=== PATIENT | female | born 1980 | race Caucasian/White ===

== ENCOUNTER 2023-02-25 15:58 | Emergency (ER) | payer OTHER ==
[2023-02-25 16:13] VITALS: BP 126/67; PULSE 90; RESP 18; TEMP 98; BMI 45.8
[2023-02-25 17:35] LABS: BASO % 0.7 % (0-2.0); EOS % 1.7 % (0-4.5); HEMATOCRIT 32.4 % (32.4-45.2); HEMOGLOBIN 10.2 GM/dL (10.7-15.3); LYMPH % 26.8 % (8-40); MCH 20.6 pg (25.7-33.7); MCHC 31.6 g/dl (32.0-36.0); MEAN CELL VOLUME 65.1 fl (80-96); MEAN PLT VOLUME 8.2 fl (7.5-11.1); MONO % 5.8 % (3.8-10.2); PLATELET COUNT 286 10^3/uL (134-434); RBC 4.98 M/mm3 (3.60-5.2); RDW 18.7 % (11.6-15.6); WHITE BLOOD COUNT 6.3 K/mm3 (4.0-10.0)
[2023-02-25 17:43] LABS: HCG,QUALITATIVE URINE Positive
[2023-02-25 17:45] LABS: PH,URINE 5.5 (5.0-8.0); URINE APPEARANCE CLEAR; URINE BILIRUBIN NEGATIVE (NEGATIVE); URINE COLOR YELLOW; URINE GLUCOSE (UA) NEGATIVE (NEGATIVE); URINE KETONE NEGATIVE (NEGATIVE); URINE LEUK ESTERASE NEGATIVE (NEGATIVE); URINE NITRITE NEGATIVE (NEGATIVE); URINE PROTEIN NEGATIVE (NEGATIVE); URINE UROBILINOGEN 0.2 mg/dL (0.2-1.0)
[2023-02-25 17:53] LABS: POTASSIUM 4.1 mmol/L (3.5-5.1)
[2023-02-25 17:55] LABS: CALCIUM 9.3 mg/dL (8.5-10.1)
[2023-02-25 17:56] LABS: ALBUMIN 3.7 g/dl (3.4-5.0); BLOOD UREA NITROGEN 7.7 mg/dL (7-18)
[2023-02-25 17:59] LABS: CREATININE 0.6 mg/dL (0.55-1.3)
[2023-02-25 18:01] LABS: BILIRUBIN,TOTAL 0.5 mg/dL (0.2-1); TOT PROT 7.7 g/dl (6.4-8.2)
[2023-02-25] MEDS ORDERED: ACETAMINOPHEN 325 MG TABLET (FP) PO ONE (19:09)
[2023-02-25 19:57] LABS: ANISOCYTOSIS 3+; MACROCYTOSIS 0
[2023-02-25] MEDS ORDERED: ACETAMINOPHEN 325 MG TABLET (FP) ONE (20:15)
== END 2023-02-25 21:12 | disposition home or self-care (01) ==
LOC: JER 15:58
DX: O26.891 Other specified pregnancy related conditions, first trimester (principal); R10.30 Lower abdominal pain, unspecified; R20.2 Paresthesia of skin; M79.621 Pain in right upper arm; M79.622 Pain in left upper arm; Z3A.01 Less than 8 weeks gestation of pregnancy
CPT/HCPCS: 36415; 76817-TC; 80053; 81003; 84702; 84703; 85025; 86850; 86900; 86901; 87086; 87491; 87591; 99284-25

== ENCOUNTER 2023-10-20 12:04 | Emergency (ER) | payer OTHER ==
[2023-10-20 12:13] VITALS: BP 126/83; PULSE 104; RESP 18; TEMP 97.9; BMI 43.4
[2023-10-20] MEDS ORDERED: ACETAMINOPHEN 325 MG TABLET (FP) PO ONE ×2 (13:20→14:09)
[2023-10-20] MEDS ORDERED: ACETAMINOPHEN 325 MG TABLET (FP) ONE (14:00)
== END 2023-10-20 15:09 | disposition home or self-care (01) ==
LOC: JERFT 12:04
DX: M25.561 Pain in right knee (principal); W19.XXXA Unspecified fall, initial encounter; X50.1XXA Overexertion from prolonged static or awkward postures, initial encounter; Y92.481 Parking lot as the place of occurrence of the external cause; Y93.01 Activity, walking, marching and hiking
CPT/HCPCS: 73562-TC-RT-FY; 99283-25